=== PATIENT | male | born 1930 | race Caucasian/White ===

== ENCOUNTER 2016-11-09 08:09 | Emergency (ER) | payer MEDICARE, OTHER ==
[~2016-11-09] VITALS: Ht 172.7 cm; Wt 79.4 kg
[~2016-11-09 08:09] MED LIST: AGGRENOX1 CAP PO; ALLERCLEAR10 MG PO; ALLERGY RELIEF10 M2 PO; CARDURA8 MG PO; DOXAZOSIN MESYLA4 M1 PO; DOXAZOSIN MESYLA8 M1 PO; LEVAQUIN750 MG PO; MULTI-VITAMIN1 EAC1 PO; MULTI-VITAMIN1 TAB PO; SIMVASTATIN20 MG PO; SIMVASTATIN40 MG PO; ZESTRIL10 M2 PO
[2016-11-09] MEDS ORDERED: CLOPIDOGREL75 M1 PO (09:50)
[2016-11-09] MEDS ORDERED: TRIAMCINOLONE A15 G2 TP (09:51)
[2016-11-09] MEDS ORDERED: MIRALAX17 G2 PO (11:05)
[2016-11-09] MEDS ORDERED: NORCO 5-325 TA1 EACH PO (11:05)
== END 2016-11-09 12:00 ==
LOC: EDMED 08:09
DX: M16.12 Unilateral primary osteoarthritis, left hip (principal); I10 Essential (primary) hypertension; E78.5 Hyperlipidemia, unspecified; Z79.01 Long term (current) use of anticoagulants